=== PATIENT | female | born 1955 | race Two or more races ===

== ENCOUNTER 2018-03-19 15:00 | Emergency (ER) | payer OTHER ==
[~2018-03-19] VITALS: Ht 167.6 cm; Wt 108.9 kg
[~2018-03-19 15:00] MED LIST: LITHIUM CARBON150 MG; VASOTEC20 M1; ZOLOFT50 MG
[2018-03-19] MEDS ORDERED: LASIX40 MG (15:34)
[2018-03-19] MEDS ORDERED: DICLOFENAC SODI50 MG PO (22:02)
== END 2018-03-19 22:48 | disposition home or self-care (01) ==
LOC: ER 15:00
DX: M25.561 Pain in right knee (principal)

== ENCOUNTER 2024-02-22 04:17 | Emergency (ER) | payer OTHER ==
[~2024-02-22] VITALS: Ht 167.6 cm; Wt 99.8 kg
[~2024-02-22 04:17] MED LIST changes: +DICLOFENAC SODI50 MG PO; +LASIX40 MG
[2024-02-22] MEDS ORDERED: KETOROLAC TROMETHAMINE 60 MG VIAL IM STA (05:31)
[2024-02-22] MEDS ORDERED: ORPHENADRINE CITRATE 30 MG/ML AMPUL IM STA (05:32)
[2024-02-22] MEDS ORDERED: TRIAMCINOLONE ACETONIDE 40 MG/ML VIAL IM STA (05:32)
[2024-02-22] MEDS ORDERED: ORPHENADRINE CITRATE 30 MG/ML AMPUL ONE (05:37)
[2024-02-22] MEDS ORDERED: NORFLEX100MG PO (05:38)
[2024-02-22] MEDS ORDERED: KETOROLAC TROMETHAMINE 60 MG VIAL IM ONE (05:38)
[2024-02-22] MEDS ORDERED: TRIAMCINOLONE ACETONIDE 40 MG/ML VIAL ONE (05:38)
[2024-02-22] MEDS ORDERED: NABUMETONE750 MG PO (05:38)
[2024-02-22] MEDS ORDERED: LASIX40 MG PO (05:39)
== END 2024-02-22 06:00 ==
LOC: ER 04:18
DX: M54.50 Low back pain, unspecified (principal); I10 Essential (primary) hypertension
CPT/HCPCS: 96365; 99282; J1885; J2360; J3301